=== PATIENT | male | born 1980 | race Caucasian/White ===

== ENCOUNTER 2017-11-18 09:38 | Emergency (ER) | payer MEDICAID ==
[~2017-11-18] VITALS: Ht 188 cm; Wt 140.0 kg
[~2017-11-18 09:38] MED LIST: ALBU8.5H8 IH; ALLO100T PO; ALLO300T2 PO; ASPI81TA52 PO; AZIT500T2 PO; CLIN-80 PO; COLC0.6T69 PO; DIPH-518 PO; FURO40TA4 PO; HYDR-569 PO; IBUP-1574 PO; IBUP-1986 PO; INDO50CA PO; LISI40TA4 PO; METO-539 PO; POTA10TA19 PO; PRED20TA PO; PRED50TA PO
[2017-11-18 09:41] VITALS: BP 151/116
[2017-11-18] MEDS ORDERED: ketorolac trometh inj. 60 MG/2 ML VIAL IM ONE (10:10)
[2017-11-18] MEDS ORDERED: predniSONE 20 mg tablet PO ONE (10:10)
[2017-11-18] MEDS ORDERED: METH4TAB3 PO (10:11)
== END 2017-11-18 10:26 | disposition home or self-care (01) ==
LOC: ER 09:39
DX: M10.9 Gout, unspecified (principal); E78.00 Pure hypercholesterolemia, unspecified; I10 Essential (primary) hypertension; F12.10 Cannabis abuse, uncomplicated; J44.9 Chronic obstructive pulmonary disease, unspecified; Z88.0 Allergy status to penicillin; Z98.84 Bariatric surgery status
CPT/HCPCS: 96372; 99283; J1885; J7512

== ENCOUNTER 2018-03-15 15:47 | Emergency (ER) | payer MEDICAID ==
[~2018-03-15] VITALS: Ht 190.5 cm; Wt 147.7 kg
[~2018-03-15 15:47] MED LIST changes: -CLIN-80 PO; +CLIN300C85 PO; -INDO50CA PO; +INDO50CA14 PO; +METH4TAB3 PO
[2018-03-15 15:54] VITALS: BP 154/109
[2018-03-15] MEDS ORDERED: TRAM50TA2 PO (17:37)
[2018-03-15] MEDS ORDERED: ketorolac trometh inj. 60 MG/2 ML VIAL IM ONE (17:40)
== END 2018-03-15 18:25 | disposition home or self-care (01) ==
LOC: ER 15:47
DX: M25.461 Effusion, right knee (principal); M25.562 Pain in left knee; M21.931 Unspecified acquired deformity of right forearm; M54.5 Low back pain; E78.00 Pure hypercholesterolemia, unspecified; I10 Essential (primary) hypertension; J44.9 Chronic obstructive pulmonary disease, unspecified; F12.90 Cannabis use, unspecified, uncomplicated; Z98.84 Bariatric surgery status; Z88.0 Allergy status to penicillin; Z79.82 Long term (current) use of aspirin; Z79.899 Other long term (current) drug therapy
CPT/HCPCS: 73100; 73560; 96372; 99284; J1885

== ENCOUNTER 2018-04-16 19:52 | Emergency (ER) | payer MEDICAID ==
[~2018-04-16] VITALS: Ht 188 cm; Wt 140.9 kg
[2018-04-16 19:56] VITALS: BP 156/115
[2018-04-16 20:16] LABS: BASOPHILS # (AUTO) 0.1 X10'3 (0-0.2); BASOPHILS % (AUTO) 0.6 % (0-1); EOSINOPHILS # (AUTO) 0.2 X10'3 (0-0.9); EOSINOPHILS % (AUTO) 2.3 % (0-6); HEMATOCRIT 53.7 % (42.0-52.0); HEMOGLOBIN 17.9 g/dl (14.0-17.9); LYMPHOCYTES # (AUTO) 3.1 X10'3 (1.1-4.8); LYMPHOCYTES % (AUTO) 31.7 % (21-51); MEAN CORPUSCULAR HGB CONC 33.3 % (33.0-36.5); MEAN PLATELET VOLUME 8.8 FL (7.4-10.4); MONOCYTES # (AUTO) 0.5 X10'3 (0-0.9); MONOCYTES % (AUTO) 5.3 % (2-12); NEUTROPHILS # (AUTO) 5.9 X10'3 (1.8-7.7); NEUTROPHILS % (AUTO) 60.1 % (42-75); PLATELET COUNT 264 X10'3 (140-440); RED BLOOD COUNT 6.17 X10'6 (4.70-6.10); RED CELL DISTRIBUTION WIDTH 13.9 % (11.5-14.5); WHITE BLOOD COUNT 9.8 X10'3 (4.5-11.0)
[2018-04-16 20:19] LABS: PROTHROMBIN TIME 10.3 SECONDS (9.0-12.0)
[2018-04-16 20:20] LABS: PARTIAL THROMBOPLASTIN TIME 28 SECONDS (22-32)
[2018-04-16 20:33] LABS: ALANINE AMINOTRANSFERASE 23 U/L (12-78); ALBUMIN 3.8 G/DL (3.4-5.0); ALBUMIN/GLOBULIN RATIO 0.9 (1.1-1.5); ALKALINE PHOSPHATASE 111 IU/L (46-116); ANION GAP 8 (8-16); ASPARTATE AMINO TRANSFERASE 18 U/L (10-37); BILIRUBIN,TOTAL 0.5 MG/DL (0.1-1.0); BLOOD UREA NITROGEN 18 MG/DL (7-18); BUN/CREATININE RATIO 12.3 (5.4-32.0); CALCIUM 8.8 MG/DL (8.5-10.1); CHLORIDE 106 MMOL/L (99-107); CREATININE 1.46 MG/DL (0.60-1.10); ETHANOL < 0.010 GM/DL (0.0-0.010); GLUCOSE 105 MG/DL (70-104); POTASSIUM 4.1 MMOL/L (3.5-5.1); SODIUM 142 MMOL/L (135-145); TOTAL CARBON DIOXIDE 27.6 MMOL/L (24-32); TOTAL PROTEIN 7.9 G/DL (6.4-8.2); TROPONIN I < 0.04 NG/ML (0.0-0.05); eGFR 54 ML/MIN
[2018-04-16] MEDS ORDERED: iohexol 350MG/ML 100ml bottle IV ONE (20:44)
[2018-04-16] MEDS ORDERED: metoclopramide 5 mg/ml inj IV ONE (20:55)
[2018-04-16] MEDS ORDERED: normal saline 1000ML IV soln IVB ONE (20:55)
== END 2018-04-16 21:44 | disposition left against medical advice (07) ==
LOC: ER 19:54
DX: R51 Headache (principal); R53.1 Weakness; R47.81 Slurred speech; I10 Essential (primary) hypertension; E78.00 Pure hypercholesterolemia, unspecified; J44.9 Chronic obstructive pulmonary disease, unspecified; F12.90 Cannabis use, unspecified, uncomplicated; Z88.0 Allergy status to penicillin; Z79.82 Long term (current) use of aspirin; Z79.899 Other long term (current) drug therapy
CPT/HCPCS: 36415; 70450; 71045; 80053; 80320; 82948; 84484; 85025; 85610; 85730; 93005; 96374; 99285; J2765; J7030; 96361; Q9967

== ENCOUNTER → 2018-06-12 | Emergency (ER) | payer MEDICAID ==
[~2018-06-12] VITALS: Ht 188 cm; Wt 143.2 kg
[~2018-06-12] MED LIST changes: +HYDR-4383 PO; -HYDR-569 PO; +NAPR-56 PO; +colchicine 0.6mg tablet PO ONE; +ibuprofen tablet 400 MG TABLET PO ONE; +ketorolac tromethamine 15mg/ml inj. IM ONE; +predniSONE 20 mg tablet PO ONE
[2018-06-12 08:32] VITALS: BP 158/118
== END | disposition home or self-care (01) ==
LOC: ER 08:26
DX: M10.9 Gout, unspecified (principal); E78.00 Pure hypercholesterolemia, unspecified; I10 Essential (primary) hypertension; J44.9 Chronic obstructive pulmonary disease, unspecified; G47.30 Sleep apnea, unspecified; F12.90 Cannabis use, unspecified, uncomplicated; Z88.0 Allergy status to penicillin; Z79.82 Long term (current) use of aspirin; Z79.899 Other long term (current) drug therapy; Z98.84 Bariatric surgery status
CPT/HCPCS: 96372; 99283; J1885; J7512; 99284

== ENCOUNTER 2018-07-04 20:39 | Emergency (ER) | payer MEDICAID ==
[~2018-07-04] VITALS: Ht 190.5 cm; Wt 115.0 kg
[~2018-07-04 20:39] MED LIST changes: -NAPR-56 PO; -colchicine 0.6mg tablet PO ONE; -ibuprofen tablet 400 MG TABLET PO ONE; -ketorolac tromethamine 15mg/ml inj. IM ONE; -predniSONE 20 mg tablet PO ONE
[2018-07-04 20:44] VITALS: BP 158/103
[2018-07-04] MEDS ORDERED: ketorolac trometh. 30mg/ml inj. IV ONE ×2 (21:50→22:40)
== END 2018-07-04 22:53 | disposition home or self-care (01) ==
LOC: ER 20:40
DX: S63.681A Other sprain of right thumb, initial encounter (principal); M25.562 Pain in left knee; E78.00 Pure hypercholesterolemia, unspecified; I10 Essential (primary) hypertension; J44.9 Chronic obstructive pulmonary disease, unspecified; M10.9 Gout, unspecified; F12.90 Cannabis use, unspecified, uncomplicated; Z98.890 Other specified postprocedural states; Z98.84 Bariatric surgery status; Z88.0 Allergy status to penicillin; Z79.82 Long term (current) use of aspirin; Z79.899 Other long term (current) drug therapy; X50.1XXA Overexertion from prolonged static or awkward postures, initial encounter; Y93.01 Activity, walking, marching and hiking; Y92.89 Other specified places as the place of occurrence of the external cause; Y99.9 Unspecified external cause status
CPT/HCPCS: 73130; 73564; 96374; 99283; J1885

== ENCOUNTER 2018-10-29 03:50 | Emergency (ER) | payer MEDICAID ==
[~2018-10-29] VITALS: Ht 190.5 cm; Wt 145.1 kg
[~2018-10-29 03:50] MED LIST changes: +CLIN-96 PO; -CLIN300C85 PO
[2018-10-29 03:57] VITALS: BP 161/101
[2018-10-29] MEDS ORDERED: AZIT250T2 PO (04:05)
[2018-10-29] MEDS ORDERED: ROBCFL PO (04:06)
== END 2018-10-29 04:12 | disposition home or self-care (01) ==
LOC: ER 03:51
DX: J20.9 Acute bronchitis, unspecified (principal); J06.9 Acute upper respiratory infection, unspecified; E78.00 Pure hypercholesterolemia, unspecified; I10 Essential (primary) hypertension; J44.9 Chronic obstructive pulmonary disease, unspecified; F12.90 Cannabis use, unspecified, uncomplicated; M10.9 Gout, unspecified; Z87.01 Personal history of pneumonia (recurrent); Z98.890 Other specified postprocedural states; Z98.84 Bariatric surgery status; Z88.0 Allergy status to penicillin; Z79.82 Long term (current) use of aspirin; Z79.899 Other long term (current) drug therapy
CPT/HCPCS: 99283

== ENCOUNTER 2018-10-30 12:24 | Emergency (ER) | payer MEDICAID ==
[~2018-10-30] VITALS: Ht 190.5 cm; Wt 145.0 kg
[~2018-10-30 12:24] MED LIST changes: +AZIT250T2 PO; +ROBCFL PO
[2018-10-30 12:37] VITALS: BP 163/115
== END 2018-10-30 12:50 | disposition home or self-care (01) ==
LOC: ER 12:25
DX: J06.9 Acute upper respiratory infection, unspecified (principal); I10 Essential (primary) hypertension; E78.00 Pure hypercholesterolemia, unspecified; J44.9 Chronic obstructive pulmonary disease, unspecified; F12.90 Cannabis use, unspecified, uncomplicated; Z79.82 Long term (current) use of aspirin; Z88.0 Allergy status to penicillin
CPT/HCPCS: 99281

== ENCOUNTER 2019-02-13 01:47 | Emergency (ER) | payer MEDICAID ==
[~2019-02-13] VITALS: Ht 190.5 cm; Wt 145.0 kg
[~2019-02-13 01:47] MED LIST changes: -AZIT250T2 PO; -ROBCFL PO
[2019-02-13 01:56] VITALS: BP 158/107
[2019-02-13] MEDS ORDERED: pantoprazole 40mg Tablet.DR PO ONE (03:00)
[2019-02-13] MEDS ORDERED: ketorolac trometh inj. 60 MG/2 ML VIAL IM ONE (03:00)
[2019-02-13] MEDS ORDERED: dexamethasone 4mg/ml inj IM ONE (03:00)
[2019-02-13] MEDS ORDERED: colchicine 0.6mg tablet PO ONE (03:00)
[2019-02-13] MEDS ORDERED: PRED20TA PO (03:02)
[2019-02-13] MEDS ORDERED: COLC0.6T69 PO (03:02)
[2019-02-13] MEDS ORDERED: PANT-47 PO (03:02)
[2019-02-13] MEDS ORDERED: NAPR-56 PO (03:02)
[2019-02-16] MEDS ORDERED: LISI40TA4 PO (10:43)
[2019-02-16] MEDS ORDERED: AMLO2.5T2 PO (10:43)
== END 2019-02-13 04:09 | disposition home or self-care (01) ==
LOC: ER 01:47
DX: M10.9 Gout, unspecified (principal); M25.562 Pain in left knee; E78.00 Pure hypercholesterolemia, unspecified; I10 Essential (primary) hypertension; J44.9 Chronic obstructive pulmonary disease, unspecified; G47.30 Sleep apnea, unspecified; F12.90 Cannabis use, unspecified, uncomplicated; Z98.84 Bariatric surgery status; Z98.890 Other specified postprocedural states; Z88.6 Allergy status to analgesic agent; Z88.0 Allergy status to penicillin; Z79.899 Other long term (current) drug therapy
CPT/HCPCS: 96372; 99283; J1100; J1885

== ENCOUNTER 2019-02-19 07:46 | Day surgery (SDC) | payer MEDICAID ==
[2019-02-16 11:02] LABS: BASOPHILS % (AUTO) 0.7 % (0-1); EOSINOPHILS # (AUTO) 0.1 X10'3 (0-0.9); EOSINOPHILS % (AUTO) 1.5 % (0-6); LYMPHOCYTES # (AUTO) 2.6 X10'3 (1.1-4.8); LYMPHOCYTES % (AUTO) 40.3 % (21-51); MEAN CORPUSCULAR HEMOGLOBIN 29.3 PG (27.0-31.0); MEAN CORPUSCULAR HGB CONC 34.4 g/dL (33.0-36.5); MEAN CORPUSCULAR VOLUME 85.1 FL (78-98); MEAN PLATELET VOLUME 8.7 FL (7.4-10.4); MONOCYTES # (AUTO) 0.5 X10'3 (0-0.9); MONOCYTES % (AUTO) 7.6 % (2-12); NEUTROPHILS # (AUTO) 3.3 X10'3 (1.8-7.7); NEUTROPHILS % (AUTO) 49.9 % (42-75); PRE OP HEMATOCRIT 50.2 % (42.0-52.0); PRE OP HEMOGLOBIN 17.3 g/dL (14.0-17.9); PRE OP PLATELET COUNT 249 X10'3 (140-440); RED BLOOD COUNT 5.89 X10'6 (4.70-6.10); RED CELL DISTRIBUTION WIDTH 14.1 % (11.5-14.5)
[2019-02-16 11:07] LABS: ALBUMIN 3.3 G/DL (3.4-5.0); ALBUMIN/GLOBULIN RATIO 0.8 (1.1-1.5); ALKALINE PHOSPHATASE 81 IU/L (46-116); BLOOD UREA NITROGEN 23 MG/DL (7-18); BUN/CREATININE RATIO 19.2 (5.4-32.0); CALCIUM 9.1 MG/DL (8.5-10.1); CHLORIDE 108 MMOL/L (99-107); PRE OP ALT 78 U/L (30-65); PRE OP ANION GAP 5 (8-16); PRE OP AST 74 U/L (10-37); PRE OP BILIRUB, TOTAL 0.5 MG/DL (0.0-1.0); PRE OP GLUCOSE 80 MG/DL (70-104); PRE OP SODIUM 141 MMOL/L (135-145); TOTAL CARBON DIOXIDE 28.2 MMOL/L (24-32); TOTAL PROTEIN 7.4 G/DL (6.4-8.2); eGFR 68 ML/MIN
[~2019-02-19] VITALS: Ht 190.5 cm; Wt 147.0 kg
[2019-02-19] VITALS (7 sets, daily range): BP systolic 132–154; BP diastolic 82–100
[~2019-02-19 07:46] MED LIST changes: -ALBU8.5H8 IH; -ALLO300T2 PO; +AMLO2.5T2 PO; -ASPI81TA52 PO; -AZIT500T2 PO; +BUPIVAcaine/PF 2.5mg/ml (0.25%) 10ml vial ONE; -CLIN-96 PO; -COLC0.6T69 PO; -DIPH-518 PO; -FURO40TA4 PO; -HYDR-4383 PO; -IBUP-1574 PO; -IBUP-1986 PO; -INDO50CA14 PO; -METH4TAB3 PO; -METO-539 PO; -POTA10TA19 PO; -PRED20TA PO; -PRED50TA PO
[2019-02-19] MEDS ORDERED: clindamycin-Cleocin 900mg/D5W 50 ML IV ONE (08:00)
[2019-02-19] MEDS ORDERED: famotidine 20mg tablet PO ONE (08:00)
[2019-02-19] MEDS ORDERED: ringers solution, lacted 1,000 ML IV SCH (08:00)
[2019-02-19] MEDS ORDERED: LIDOcaine 0.5% (5mg/ml) 50ml vial ONE (09:40)
[2019-02-19] MEDS ORDERED: MIDAZolam 5mg/5ml vial ONE (09:42)
[2019-02-19] MEDS ORDERED: fentaNYL/PF 50MCG/1 ML 2ML syringe ONE ×2 (09:42→10:18)
[2019-02-19] MEDS ORDERED: hydrALAZINE 20mg/ml inj. IV ONE (09:51)
--- NOTE | 2019-02-19 11:01 | NUR ---
Received from OR via , accompanied by Anesthesiologist JULITO and report given by Anesthesiolgist. AWAKE IN NO RESP DISTRESS SKIN WARM AND DRY HOB AND RUE ELEVATED, FINGERS WARM PINK GOOD CAP REFILL WITH MOVEMENT. DSG DI, ICE TO WRIST, HUNGRY THIRSTY, WANTS TO GO HOME.
--- NOTE | 2019-02-19 11:51 | NUR ---
AWAKE VS WNL, NO CO PAIN, DSG DI, FINGERS WARM PINK GOOD CAP REFILL, TOLERATES LIQUIDS HUNGRY, DISCH INSTR GIVEN TO PT AND UNDERSTOOD, ALREADY HAS SCRIPT FOR PAIN. HAS RETURN TO WORK SLIP FROM DR OROPEZA, HOME.
[2019-02-19] MEDS ORDERED: propofol inj 20 ML IV ONE (11:55)
== END 2019-02-19 11:51 | disposition home or self-care (01) ==
LOC: PAS 07:46
PROVIDERS: ATTEND Orthopaedic Surgery Hand Surgery
DX: M25.341 Other instability, right hand (principal); M65.841 Other synovitis and tenosynovitis, right hand; Z79.899 Other long term (current) drug therapy; Z87.891 Personal history of nicotine dependence; G47.30 Sleep apnea, unspecified; I48.91 Unspecified atrial fibrillation; I10 Essential (primary) hypertension; G43.909 Migraine, unspecified, not intractable, without status migrainosus; M10.9 Gout, unspecified; E66.9 Obesity, unspecified; Z68.41 Body mass index [BMI] 40.0-44.9, adult; Z88.0 Allergy status to penicillin; Z72.89 Other problems related to lifestyle; Z98.84 Bariatric surgery status; Z98.890 Other specified postprocedural states
CPT/HCPCS: 25118; 26540; 36415; 80053; 85025; 93005; C1713; J0360; J2001; J2250; J2704; J3010; J3490; J7120; A4215; A4618; A7000

== ENCOUNTER 2019-03-14 07:45 | Emergency (ER) | payer MEDICAID ==
[~2019-03-14] VITALS: Ht 190.5 cm; Wt 142.7 kg
[~2019-03-14 07:45] MED LIST changes: -BUPIVAcaine/PF 2.5mg/ml (0.25%) 10ml vial ONE
[2019-03-14] MEDS ORDERED: methylPREDNISolone sod succ 125mg/2ml vial IM ONE (08:15)
[2019-03-14] MEDS ORDERED: HYDR-4353 PO (09:11)
[2019-03-14 09:26] VITALS: BP 156/93
== END 2019-03-14 09:30 | disposition home or self-care (01) ==
LOC: ER 07:46
DX: M79.671 Pain in right foot (principal); E78.00 Pure hypercholesterolemia, unspecified; I10 Essential (primary) hypertension; J44.9 Chronic obstructive pulmonary disease, unspecified; G47.30 Sleep apnea, unspecified; M10.9 Gout, unspecified; F12.90 Cannabis use, unspecified, uncomplicated; Z98.890 Other specified postprocedural states; Z98.84 Bariatric surgery status; Z88.6 Allergy status to analgesic agent; Z88.0 Allergy status to penicillin; Z88.8 Allergy status to other drugs, medicaments and biological substances; Z79.899 Other long term (current) drug therapy
CPT/HCPCS: 73630; 96372; 99283; J2930

== ENCOUNTER 2019-04-08 04:46 | Emergency (ER) | payer MEDICAID ==
[~2019-04-08] VITALS: Ht 190.5 cm; Wt 150.3 kg
[2019-04-08 04:51] VITALS: BP 150/97
[2019-04-08] MEDS ORDERED: ACET-3068 PO (05:26)
== END 2019-04-08 05:46 | disposition home or self-care (01) ==
LOC: ER 04:46
DX: M79.672 Pain in left foot (principal); M10.9 Gout, unspecified; E78.00 Pure hypercholesterolemia, unspecified; I10 Essential (primary) hypertension; J44.9 Chronic obstructive pulmonary disease, unspecified; G47.30 Sleep apnea, unspecified; Z98.890 Other specified postprocedural states; Z98.84 Bariatric surgery status; Z88.6 Allergy status to analgesic agent; Z88.0 Allergy status to penicillin; Z79.899 Other long term (current) drug therapy
CPT/HCPCS: 99283

== ENCOUNTER 2019-10-04 15:38 | Emergency (ER) | payer MEDICAID ==
[~2019-10-04] VITALS: Ht 190.5 cm; Wt 149.2 kg
[2019-10-04 15:50] VITALS: BP 157/97
[2019-10-04] MEDS ORDERED: INDO-12 PO (15:55)
[2019-10-04] MEDS ORDERED: PRED10TA23 PO (15:55)
== END 2019-10-04 16:10 | disposition home or self-care (01) ==
LOC: ER 15:39
DX: M10.072 Idiopathic gout, left ankle and foot (principal); E78.00 Pure hypercholesterolemia, unspecified; I10 Essential (primary) hypertension; J45.909 Unspecified asthma, uncomplicated; J43.9 Emphysema, unspecified; G47.30 Sleep apnea, unspecified; Z98.0 Intestinal bypass and anastomosis status; Z98.890 Other specified postprocedural states; Z88.6 Allergy status to analgesic agent; Z88.0 Allergy status to penicillin; Z79.899 Other long term (current) drug therapy
CPT/HCPCS: 99283

== ENCOUNTER 2019-12-28 21:07 | Emergency (ER) | payer MEDICAID ==
[~2019-12-28] VITALS: Ht 190.5 cm; Wt 148.9 kg
[~2019-12-28 21:07] MED LIST changes: +INDO-12 PO
[2019-12-28 21:08] VITALS: BP 150/96
--- NOTE | 2019-12-28 21:20 | NUR ---
PT IS BEING EVALUATED BY DR AVILES, NO BLEEDING,
[2019-12-28] MEDS ORDERED: bacitracin 15gm ointment TP ONE (21:25)
--- NOTE | 2019-12-28 21:38 | NUR ---
irrigated small lac to left lower leg, applied antibiotic ointment, 2x2 and coban, pt amb with steady gait to [facility], gave pt extra dressing supplies
== END 2019-12-28 21:41 | disposition home or self-care (01) ==
LOC: ER 21:08
DX: S81.812A Laceration without foreign body, left lower leg, initial encounter (principal); E78.00 Pure hypercholesterolemia, unspecified; I10 Essential (primary) hypertension; J44.9 Chronic obstructive pulmonary disease, unspecified; G47.30 Sleep apnea, unspecified; Z90.49 Acquired absence of other specified parts of digestive tract; Z98.890 Other specified postprocedural states; Z88.6 Allergy status to analgesic agent; Z88.0 Allergy status to penicillin; Z79.899 Other long term (current) drug therapy; W26.0XXA Contact with knife, initial encounter; Y93.89 Activity, other specified; Y92.89 Other specified places as the place of occurrence of the external cause; Y99.8 Other external cause status
CPT/HCPCS: 99282

== ENCOUNTER 2019-12-30 15:17 | Inpatient (IN) | payer MEDICAID ==
[~2019-12-30] VITALS: Ht 190.5 cm; Wt 136.3 kg
--- NOTE | 2019-12-30 16:25 | NUR ---
Pt had a vomiting episode in the lobby, clear emesis. Pt reports the pain was more severe and it cause the N/V. Pt assisted via w/c to ED room 5. Assisted to the gurney, out of clothes and into a gown. Report given to the primary nurse at bedside.
[2019-12-30] MEDS ORDERED: normal saline 1000ML IV soln IVB ONE ×2 (16:40→17:35)
[2019-12-30] MEDS ORDERED: iohexol 300mg/ml 100ml inj. ONE (16:40)
[2019-12-30 17:08] LABS: BASOPHILS # (AUTO) 0.1 X10'3 (0-0.2); BASOPHILS % (AUTO) 0.3 % (0-1); EOSINOPHILS % (AUTO) 0.2 % (0-6); HEMATOCRIT 49.9 % (42.0-52.0); HEMOGLOBIN 16.4 g/dl (14.0-17.9); LYMPHOCYTES # (AUTO) 1.5 X10'3 (1.1-4.8); LYMPHOCYTES % (AUTO) 7.8 % (21-51); MEAN CORPUSCULAR HEMOGLOBIN 28.2 PG (27.0-31.0); MEAN CORPUSCULAR HGB CONC 32.8 g/dL (33.0-36.5); MEAN CORPUSCULAR VOLUME 85.9 FL (78-98); MEAN PLATELET VOLUME 8.8 FL (7.4-10.4); MONOCYTES # (AUTO) 0.9 X10'3 (0-0.9); MONOCYTES % (AUTO) 4.8 % (2-12); NEUTROPHILS # (AUTO) 16.7 X10'3 (1.8-7.7); NEUTROPHILS % (AUTO) 86.9 % (42-75); PLATELET COUNT 215 X10'3 (140-440); RED BLOOD COUNT 5.81 X10'6 (4.70-6.10); RED CELL DISTRIBUTION WIDTH 13.9 % (11.5-14.5); WHITE BLOOD COUNT 19.2 X10'3 (4.5-11.0)
[2019-12-30 17:20] LABS: PARTIAL THROMBOPLASTIN TIME 27 SECONDS (22-32)
[2019-12-30 17:25] LABS: ALANINE AMINOTRANSFERASE 43 U/L (12-78); ALBUMIN 3.9 G/DL (3.4-5.0); ALBUMIN/GLOBULIN RATIO 1.1 (1.1-1.5); ALKALINE PHOSPHATASE 91 IU/L (46-116); AMYLASE 64 U/L (25-115); ANION GAP 7 (8-16); ASPARTATE AMINO TRANSFERASE 47 U/L (10-37); BILIRUBIN,TOTAL 1.2 MG/DL (0.1-1.0); BLOOD UREA NITROGEN 15 MG/DL (7-18); BUN/CREATININE RATIO 7.7 (5.4-32.0); CALCIUM 9.2 MG/DL (8.5-10.1); CHLORIDE 106 MMOL/L (99-107); CREATININE 1.96 MG/DL (0.60-1.10); GLUCOSE 127 MG/DL (70-104); LIPASE 299 U/L (73-393); POTASSIUM 4.1 MMOL/L (3.5-5.1); SODIUM 141 MMOL/L (135-145); TOTAL CARBON DIOXIDE 28.4 MMOL/L (24-32); TOTAL PROTEIN 7.3 G/DL (6.4-8.2); eGFR 38 ML/MIN
[2019-12-30 17:26] LABS: MAGNESIUM 1.9 MG/DL (1.5-2.4)
[2019-12-30] MEDS ORDERED: sodium bicarbonate (8.4%) inj. 1 MEQ/ML ML IV ONE (17:40)
--- NOTE | 2019-12-30 17:55 | NUR ---
pt requested if he can eat as he ate this morning at 6 am and when went to get lunch pt has accident.asked dr martínez regarding diet if pt can have as per pt can eat ,pt has his subway sandwich ,pt ate it.
[2019-12-30] MEDS ORDERED: morphine 10mg/ml inj. IV STA (18:19)
--- NOTE | 2019-12-30 19:27 | NUR ---
CALLED [facility]OTH [facility] AND LEFT MESSAGE AT 19:25
[2019-12-30] MEDS ORDERED: potassium Cl 20 mEq SR tablet PO PRN ×2 (20:25)
[2019-12-30] MEDS ORDERED: ondansetron/PF 4mg/2ml inj IV PRN (20:25)
[2019-12-30] MEDS ORDERED: acetaminophen 325mg tablet PO PRN ×2 (20:25)
[2019-12-30] MEDS ORDERED: potassium CL 10mEq/100ml bag 100 ML IV PRN ×2 (20:25)
[2019-12-30] MEDS ORDERED: magnesium hydroxide 30ml (MOM) UD suspension PO PRN (20:25)
[2019-12-30] MEDS ORDERED: HYDROcodone/acetaminophen 5mg/325mg tablet PO PRN (20:35)
[2019-12-30] MEDS: morphine 4 MG/ML inj SYRINge IV PRN (20:40)
[2019-12-30] MEDS: normal saline 1000ml 1,000 ML IV SCH (20:48)
[2019-12-30] MEDS: K, MAG and/or Phos replacement - Verify level? MC SCH (20:49)
--- NOTE | 2019-12-30 21:18 | NUR ---
pt moved onto a hospital bed. His is at the BS visiting with him.
--- NOTE | 2019-12-30 22:38 | NUR ---
Patient in room ED 5. I have received report from Chela in ER and had the opportunity to ask questions and assume patient care.
[2019-12-30] MEDS: morphine 2 MG/ML inj. syringe IV PRN (22:45)
[2019-12-30] MEDS: HYDROcodone/acetaminophen 10/325mg tab PO PRN (22:45)
--- NOTE | 2019-12-30 23:00 | NUR ---
Arrived to ICU room 2015 @2300. Patient moved from the bed to the ICU bed slowly using his right leg while his left leg had to be held up for comfort. A&Ox4. Vital signs are stable and entered in. Patient was educated on MRSA swab, heart monitoring, call light button and was orientated to the room. Questions encouraged and answered.
[2019-12-30 23:17] VITALS: BP_SYST 146; BP_SYST 90; BP_DIAS 90
[2019-12-30] MEDS ORDERED: ATOR10TA87 PO (23:48)
[2019-12-31] VITALS (28 sets, daily range): BP systolic 131–162; BP diastolic 77–97
[2019-12-31] MEDS: morphine 4 MG/ML inj SYRINge IV PRN ×6 (01:41→23:05)
[2019-12-31] MEDS: HYDROcodone/acetaminophen 10/325mg tab PO PRN ×5 (03:15→20:38)
[2019-12-31] MEDS: morphine 2 MG/ML inj. syringe IV PRN ×2 (03:15→07:19)
[2019-12-31] MEDS: normal saline 1000ml 1,000 ML IV SCH ×3 (03:25→16:28)
[2019-12-31 04:03] LABS: TOTAL PROTEIN,URINE RANDOM 7.6 MG/DL
[2019-12-31 04:11] LABS: CLARITY,URINE CLEAR (Clear); COLOR,URINE YELLOW (Yellow); GLUCOSE, URINE NEGATIVE (Neg); KETONES,URINE NEGATIVE (Neg); LEUKOCYTE ESTERASE ,URINE TRACE (Neg); NITRITES, URINE NEGATIVE (Neg); OCCULT BLOOD,URINE NEGATIVE (Neg); PH,URINE 5.5 (4.8-8.0); PROTEIN,URINE NEGATIVE (Neg); UROBILINOGEN,URINE 0.2 E.U/dL (0.2-1.0)
[2019-12-31 04:16] LABS: UA COLLECTION TYPE URINAL
[2019-12-31 04:22] LABS: BACTERIA,URINE FEW /HPF (Neg); RBC,URINE NONE SEEN /HPF (0-2); SQUAMOUS EPITHELIAL CELL,UR FEW /LPF (FEW); WBC,URINE 0-4 /HPF (0-4)
[2019-12-31 04:39] LABS: UA EOSINOPHILS NO EOS /HPF
[2019-12-31 05:40] LABS: BASOPHILS % (AUTO) 0.2 % (0-1); EOSINOPHILS # (AUTO) 0.1 X10'3 (0-0.9); EOSINOPHILS % (AUTO) 0.9 % (0-6); HEMATOCRIT 41.8 % (42.0-52.0); HEMOGLOBIN 14.1 g/dl (14.0-17.9); LYMPHOCYTES # (AUTO) 1.8 X10'3 (1.1-4.8); LYMPHOCYTES % (AUTO) 17.5 % (21-51); MEAN CORPUSCULAR HEMOGLOBIN 28.7 PG (27.0-31.0); MEAN CORPUSCULAR HGB CONC 33.7 g/dL (33.0-36.5); MEAN CORPUSCULAR VOLUME 85.4 FL (78-98); MEAN PLATELET VOLUME 8.7 FL (7.4-10.4); MONOCYTES % (AUTO) 9.1 % (2-12); NEUTROPHILS # (AUTO) 7.6 X10'3 (1.8-7.7); NEUTROPHILS % (AUTO) 72.3 % (42-75); PLATELET COUNT 156 X10'3 (140-440); RED BLOOD COUNT 4.89 X10'6 (4.70-6.10); RED CELL DISTRIBUTION WIDTH 13.7 % (11.5-14.5); WHITE BLOOD COUNT 10.5 X10'3 (4.5-11.0)
[2019-12-31 05:56] LABS: ANION GAP 6 (8-16); BLOOD UREA NITROGEN 14 MG/DL (7-18); CALCIUM 7.9 MG/DL (8.5-10.1); CHLORIDE 107 MMOL/L (99-107); CREATININE 1.55 MG/DL (0.60-1.10); GLUCOSE 107 MG/DL (70-104); POTASSIUM 3.8 MMOL/L (3.5-5.1); SODIUM 141 MMOL/L (135-145); TOTAL CARBON DIOXIDE 27.6 MMOL/L (24-32); eGFR 50 ML/MIN
--- NOTE | 2019-12-31 06:06 | NUR ---
Hinge knee brace needed per Dr. Huitron. Paged robotics technologist to bring one.
--- NOTE | 2019-12-31 06:15 | NUR ---
Patient in room CICU 2014. I have received report from HS RN and had the opportunity to ask questions and assume patient care.
--- NOTE | 2019-12-31 06:27 | NUR ---
Problems reprioritized. Patient report given, questions answered & plan of care reviewed with ANTWAN Whitaker.
--- NOTE | 2019-12-31 07:47 | NUR ---
ORDER FOR MIXED VENOUS, HOWEVER THERE IS NO CENTRAL LINE, ADVISED PRINCE MONCADA.
[2019-12-31] MEDS: K, MAG and/or Phos replacement - Verify level? MC SCH (08:00)
--- NOTE | 2019-12-31 09:16 | NUR ---
Jamshid orthotist for a hinge knee brace.
[2019-12-31] MEDS ORDERED: INDO50CA96 PO (09:49)
[2019-12-31] MEDS ORDERED: ATOR20TA66 PO (10:36)
--- NOTE | 2019-12-31 10:39 | NUR ---
have not had a response from [place] [facility], notified charge
--- NOTE | 2019-12-31 11:54 | NUR ---
spoke to [email or web address] who states she is on her way .
[2019-12-31] MEDS: calcium carbonate 500mg chew tablet PO SCH ×3 (12:30→21:30)
--- NOTE | 2019-12-31 18:27 | NUR ---
Problems reprioritized. Patient report given, questions answered & plan of care reviewed with night clerk RN.
[2019-12-31] MEDS ORDERED: amLODIPine 2.5mg tablet PO SCH (21:00)
[2020-01-01] VITALS (19 sets, daily range): BP systolic 130–173; BP diastolic 60–98
[2020-01-01] MEDS ORDERED: indomethacin 25mg capsule PO PRN (00:45)
[2020-01-01] MEDS ORDERED: amLODIPine 5mg tablet PO SCH (00:47)
[2020-01-01] MEDS: allopurinol 300 MG tablet PO SCH ×2 (00:56→21:00)
[2020-01-01] MEDS: lisinopril 20mg tablet PO SCH ×2 (00:56→20:47)
[2020-01-01] MEDS: HYDROcodone/acetaminophen 10/325mg tab PO PRN ×5 (00:57→21:03)
[2020-01-01] MEDS: normal saline 1000ml 1,000 ML IV SCH (01:07)
[2020-01-01] MEDS: atorvastatin 20mg tablet PO SCH ×2 (01:18→20:47)
[2020-01-01] MEDS: amLODIPine 5mg tablet PO SCH ×2 (01:18→20:47)
[2020-01-01] MEDS: morphine 4 MG/ML inj SYRINge IV PRN (03:20)
[2020-01-01 06:20] LABS: BASOPHILS # (AUTO) 0.1 X10'3 (0-0.2); BASOPHILS % (AUTO) 0.7 % (0-1); EOSINOPHILS # (AUTO) 0.2 X10'3 (0-0.9); EOSINOPHILS % (AUTO) 1.6 % (0-6); HEMATOCRIT 41.4 % (42.0-52.0); HEMOGLOBIN 13.8 g/dl (14.0-17.9); LYMPHOCYTES # (AUTO) 1.9 X10'3 (1.1-4.8); MEAN CORPUSCULAR HEMOGLOBIN 28.8 PG (27.0-31.0); MEAN CORPUSCULAR HGB CONC 33.2 g/dL (33.0-36.5); MEAN CORPUSCULAR VOLUME 86.7 FL (78-98); MEAN PLATELET VOLUME 9.2 FL (7.4-10.4); MONOCYTES % (AUTO) 9.5 % (2-12); NEUTROPHILS # (AUTO) 7.6 X10'3 (1.8-7.7); NEUTROPHILS % (AUTO) 70.2 % (42-75); PLATELET COUNT 162 X10'3 (140-440); RED BLOOD COUNT 4.78 X10'6 (4.70-6.10); RED CELL DISTRIBUTION WIDTH 13.8 % (11.5-14.5); WHITE BLOOD COUNT 10.8 X10'3 (4.5-11.0)
[2020-01-01 06:43] LABS: ALANINE AMINOTRANSFERASE 34 U/L (12-78); ALBUMIN 2.8 G/DL (3.4-5.0); ALBUMIN/GLOBULIN RATIO 0.9 (1.1-1.5); ALKALINE PHOSPHATASE 61 IU/L (46-116); ANION GAP 6 (8-16); ASPARTATE AMINO TRANSFERASE 26 U/L (10-37); BILIRUBIN,TOTAL 1.1 MG/DL (0.1-1.0); BLOOD UREA NITROGEN 11 MG/DL (7-18); BUN/CREATININE RATIO 8.9 (5.4-32.0); CALCIUM 8.6 MG/DL (8.5-10.1); CHLORIDE 105 MMOL/L (99-107); CREATININE 1.24 MG/DL (0.60-1.10); GLUCOSE 92 MG/DL (70-104); SODIUM 141 MMOL/L (135-145); eGFR 65 ML/MIN
[2020-01-01 06:45] LABS: POTASSIUM 4.2 MMOL/L (3.5-5.1)
[2020-01-01] MEDS: morphine 2 MG/ML inj. syringe IV PRN (07:28)
[2020-01-01] MEDS: calcium carbonate 500mg chew tablet PO SCH ×4 (07:30→20:47)
--- NOTE | 2020-01-01 09:56 | NUR ---
Phone call and message left to DR Huitron as PT is working with patient and needs specific orders for Lt knee immobilizer. A verbal order was received for a hinge knee brace. But that is not noted in the chart.
--- NOTE | 2020-01-01 10:01 | NUR ---
Per DR Huitron hinge knee brace to be locked in extension. PT notified.
--- NOTE | 2020-01-01 15:27 | NUR ---
Report given with Nick MONCADA. Patient to go to 8348Y.
--- NOTE | 2020-01-01 15:30 | NUR ---
Patient transferred from ICU, oriented to unit, tele placed on patient, VS 134/76, HR 97, 94%, RR 18, 97.4 degrees, pain 7, 2 rn skin check complete, patient resting comfortably.
--- NOTE | 2020-01-01 18:23 | NUR ---
Problems reprioritized. Patient report given, questions answered & plan of care reviewed with Estephania MONCADA.
--- NOTE | 2020-01-01 20:53 | NUR ---
called Javid Gomez for increase in pain medication. [place] increased to 2 tabs Q 4 for severe pain
[2020-01-01] MEDS: polyethylene glycol 3350 17gm powd pack PO SCH (20:55)
[2020-01-01] MEDS: docusate sod 250mg capsule PO SCH (21:00)
--- NOTE | 2020-01-01 22:35 | NUR ---
notified pharm that patient does not have colace or allopurinol available, still has not been delivered. patient aware and is ok that he not take it tonight.
[2020-01-02] MEDS: HYDROcodone/acetaminophen 10/325mg tab PO PRN ×5 (01:27→19:17)
[2020-01-02 02:00] VITALS: BP 113/71
[2020-01-02 06:00] VITALS: BP 120/72
--- NOTE | 2020-01-02 06:12 | NUR ---
Problems reprioritized. Patient report given, questions answered & plan of care reviewed with ANTWAN Hogan.
--- NOTE | 2020-01-02 06:52 | NUR ---
Patient in room PCU 3018A. I have received report from ANTWAN YOUNG and had the opportunity to ask questions and assume patient care.
[2020-01-02] MEDS: calcium carbonate 500mg chew tablet PO SCH ×4 (08:56→22:00)
[2020-01-02 11:00] VITALS: BP 124/80
[2020-01-02] MEDS ORDERED: methylnaltrexone br 12mg/0.6ml inj***SubQ only SQ ONE (12:00)
[2020-01-02 18:00] VITALS: BP 116/75
--- NOTE | 2020-01-02 18:20 | NUR ---
Problems reprioritized. Patient report given, questions answered & plan of care reviewed with ANTWAN Teixeira.
[2020-01-02] MEDS: amLODIPine 5mg tablet PO SCH (19:17)
[2020-01-02] MEDS: atorvastatin 20mg tablet PO SCH (19:18)
[2020-01-02] MEDS: polyethylene glycol 3350 17gm powd pack PO SCH (21:00)
[2020-01-02] MEDS: docusate sod 250mg capsule PO SCH (21:00)
[2020-01-02 22:00] VITALS: BP 97/45
[2020-01-02] MEDS: lisinopril 20mg tablet PO SCH (22:00)
[2020-01-02] MEDS: allopurinol 300 MG tablet PO SCH (22:00)
[2020-01-03] MEDS: HYDROcodone/acetaminophen 10/325mg tab PO PRN ×4 (00:22→13:55)
[2020-01-03 07:00] VITALS: BP 109/79
--- NOTE | 2020-01-03 07:02 | NUR ---
Patient in room PCU 3018. I have received report from Lluvia MONCADA and had the opportunity to ask questions and assume patient care.
[2020-01-03] MEDS: calcium carbonate 500mg chew tablet PO SCH ×2 (08:21→12:44)
[2020-01-03 11:00] VITALS: BP 122/77
--- NOTE | 2020-01-03 11:43 | NUR ---
Dr. Montemayor cleared patient to discharge. Dr. Huitron notified and also cleared patient to discharge. Patient is awaiting discharge orders.
[2020-01-03 15:00] VITALS: BP 132/72
--- NOTE | 2020-01-03 15:46 | NUR ---
Patient requested [place] prescription prior to discharge. Dr. Montemayor and Dr. Huitron notified. Dr. Montemayor stated he will return to the floor to write a script for his [place]. Discharge is pending at this time. Charge nurse made aware.
[2020-01-03] MEDS ORDERED: HYDR-4353 PO ×2 (16:08→16:18)
--- NOTE | 2020-01-03 16:32 | NUR ---
Patient was provided with prescription for pain medication and work release form. Patient left in stable condition.
== END 2020-01-03 16:33 | disposition home or self-care (01) | DRG 135 ==
LOC: ER 15:18 → ED HOLD 20:25 → CICU 2S 22:45 → PCU 3S 01-01 15:45
PROVIDERS: ADMIT Internal Medicine Critical Care Medicine; ATTEND Internal Medicine Critical Care Medicine
PROC: 2W3RX1Z Immobilization of Left Lower Leg using Splint (ICD-10-PCS; principal; 2019-12-30)
PROC: B42G1ZZ Computerized Tomography (CT Scan) of Left Lower Extremity Arteries using Low Osmolar Contrast (ICD-10-PCS; 2019-12-30)
DX: S22.42XA Multiple fractures of ribs, left side, initial encounter for closed fracture (principal); N17.9 Acute kidney failure, unspecified; J43.9 Emphysema, unspecified; N28.1 Cyst of kidney, acquired; S82.145A Nondisplaced bicondylar fracture of left tibia, initial encounter for closed fracture; E78.00 Pure hypercholesterolemia, unspecified; G47.30 Sleep apnea, unspecified; S20.212A Contusion of left front wall of thorax, initial encounter; I10 Essential (primary) hypertension; M10.9 Gout, unspecified; V29.9XXA Motorcycle rider (driver) (passenger) injured in unspecified traffic accident, initial encounter; Z98.84 Bariatric surgery status; Y93.55 Activity, bike riding; Y92.488 Other paved roadways as the place of occurrence of the external cause; Y99.8 Other external cause status; Z88.0 Allergy status to penicillin; Z88.5 Allergy status to narcotic agent; Z79.899 Other long term (current) drug therapy
CPT/HCPCS: 36415; 71250; 73560; 73706; 74176; 80048; 80053; 81001; 82150; 82570; 83690; 83735; 83935; 84133; 84156; 84300; 84484; 85025; 85610; 85730; 86885; 86900; 86901; 87081; 87207; 93005; 97110; 97116; 97161; 97530; 99291; G0378; J2212; J2270; J7030; Q9967